=== PATIENT | female | born 1980 | race Caucasian/White ===

== ENCOUNTER 2017-02-25 18:44 | Emergency (ER) | payer OTHER ==
[2017-02-25] MEDS ORDERED: Ketorolac Tromethamine 30 MG/ML VIAL ONE (19:16)
[2017-02-25] MEDS ORDERED: Metoclopramide HCl 10 MG/2 ML VIAL ONE (19:16)
[2017-02-25] MEDS ORDERED: diphenhydrAMINE 25 MG CAP ONE (19:16)
--- NOTE | 2017-02-25 19:53 | CT ---
CT OF THE BRAIN WITHOUT CONTRAST 02/25/17 INDICATION: Headache. COMPARISON: None. FINDINGS: No acute infarct, hemorrhage, or hydrocephalus is present. Septum pellucidum and third ventricle are midline. Skull and extracranial soft tissues appear within normal limits. IMPRESSION: No acute intracranial abnormality. POS: [facility]
== END 2017-02-25 20:38 | disposition home or self-care (01) ==
LOC: BURERS 18:44
DX: R51 Headache (principal); F41.9 Anxiety disorder, unspecified
CPT/HCPCS: 70450; 96361; 96374; 96375; J1885; J2765

== ENCOUNTER 2018-04-30 19:54 | Emergency (ER) | payer BC, SELFPAY ==
--- NOTE | 2018-04-30 21:26 | RAD ---
LEFT ANKLE THREE VIEWS: Date: 04-30-18 FINDINGS: Some soft tissue swelling is present but no fracture was seen. The joint itself appears normal. There is a small amount of calcification at the insertions of the Achilles tendon. IMPRESSION: No acute bony finding. POS: HOME
== END 2018-04-30 20:26 | disposition home or self-care (01) ==
LOC: BURERS 19:54
DX: S93.402A Sprain of unspecified ligament of left ankle, initial encounter (principal); F41.9 Anxiety disorder, unspecified; W17.2XXA Fall into hole, initial encounter

== ENCOUNTER 2018-05-26 22:07 | Emergency (ER) | payer SELFPAY ==
--- NOTE | 2018-05-26 22:29 | RAD ---
RIGHT ANKLE: 05/26/18 HISTORY: Injury with pain. No evidence of fracture. No osseous abnormality. IMPRESSION: No acute osseous abnormality. POS: [facility]
[2018-05-26] MEDS ORDERED: Morphine 4 MG/ML VIAL ONE (22:42)
== END 2018-05-26 22:45 | disposition home or self-care (01) ==
LOC: BURERS 22:07
DX: S93.401A Sprain of unspecified ligament of right ankle, initial encounter (principal); F41.9 Anxiety disorder, unspecified; X50.9XXA Other and unspecified overexertion or strenuous movements or postures, initial encounter
CPT/HCPCS: 96372; J2270

== ENCOUNTER 2019-11-05 17:33 | Emergency (ER) | payer BC, OTHER ==
--- NOTE | 2019-11-05 20:35 | RAD ---
RIGHT FOOT THREE VIEWS: 11/05/19 Some soft tissue swelling is seen on the dorsum of the forefoot, however, the underlying bones appear intact. No fractures were appreciated. A small line at the base of the proximal phalanx of the fifth digit is thought to be trabecular markings. The tarsals appear normal. IMPRESSION: No acute bony findings. POS: HOME
--- NOTE | 2019-11-05 20:36 | RAD ---
PORTABLE CHEST: 11/05/19 An AP portable film at 1845 is compared with a 02/01/16 study. The heart remains normal in size and the lungs are clear. No acute infiltrate or effusion was seen. T he mediastinum appears normal. The bony structures were unremarkable. IMPRESSION: No acute thoracic findings. POS: HOME
[2019-11-06 14:05] LABS: SARS-CoV-2 MS2 Positive; SARS-CoV-2 N Gene Negative; SARS-CoV-2 S Gene Negative; SARS-CoV-2 by NAA Not Detected (NotDetected); SARS-CoV-2 orf1ab Negative
== END 2019-11-05 19:15 | disposition home or self-care (01) ==
LOC: BURERS 17:33
DX: S90.31XA Contusion of right foot, initial encounter (principal); R05 Cough; Z20.828 Contact with and (suspected) exposure to other viral communicable diseases; F41.9 Anxiety disorder, unspecified; X58.XXXA Exposure to other specified factors, initial encounter
CPT/HCPCS: 71045; 87635; U0003

== ENCOUNTER 2020-09-24 22:58 | Emergency (ER) | payer BC, OTHER ==
[2020-09-24] MEDS ORDERED: HYDROcodone/Acetaminophen 10/325 mg Tablet ONE (23:23)
[2020-09-24] MEDS ORDERED: Azithromycin 250 MG TAB ONE (23:52)
== END 2020-09-25 00:40 | disposition home or self-care (01) ==
LOC: BURERS 22:58
DX: S20.211A Contusion of right front wall of thorax, initial encounter (principal); W01.0XXA Fall on same level from slipping, tripping and stumbling without subsequent striking against object, initial encounter
CPT/HCPCS: 71250